=== PATIENT | male | born 1940 | race Caucasian/White ===

== ENCOUNTER 2020-01-17 11:28 | Emergency (ER) | payer OTHER ==
[~2020-01-17] VITALS: Ht 185.4 cm; Wt 79.8 kg
--- NOTE | 2020-01-17 11:30 | NUR ---
Patient to ER bed 04 to gown for evaluation. Side rails up.
--- NOTE | 2020-01-17 11:31 | NUR ---
Patient brought in by ambulance in the ED for syncopal episode x1 today. Denied any chest pain or shortness of breath. Denied any fevers, chills, nausea or vomiting. Patient is alert and oriented x4, respirations even and unlabored, speaking in full sentences, and ambulating with a steady gait. VSS, pain level 0/10. Informed of the approximate wait time. Instructed to notify ED staff for any changes in condition or worsening of symptoms while waiting to be seen by an ED provider. Patient verbalized understanding.
[2020-01-17 11:43] VITALS: BP_SYST 103
[2020-01-17] MEDS ORDERED: CLOP75TA32 PO (11:48)
[2020-01-17] MEDS ORDERED: NIAC500T2 PO (11:48)
[2020-01-17] MEDS ORDERED: BENA20TA9 PO (11:48)
[2020-01-17] MEDS ORDERED: METO-442 PO (11:48)
[2020-01-17] MEDS ORDERED: ASPI-1153 PO (11:48)
[2020-01-17] MEDS ORDERED: LIP10 PO (11:48)
[2020-01-17] MEDS ORDERED: ALLO100T PO (11:48)
[2020-01-17] MEDS ORDERED: UBID50TA3 PO (11:48)
[2020-01-17] MEDS ORDERED: GLUC-141 PO (11:48)
[2020-01-17] MEDS ORDERED: OMEG-95 PO (11:48)
[2020-01-17] MEDS ORDERED: AMLO5TAB4 PO (11:48)
--- NOTE | 2020-01-17 11:50 | NUR ---
ER Dr. Lomeli at bedside examining patient.
--- NOTE | 2020-01-17 11:58 | NUR ---
X-ray done at bedside as ordered by Dr. Lomeli. Patient tolerated the procedure well.
[2020-01-17] MEDS ORDERED: NACL 0.9% 1,000 ML IV ONE (12:00)
--- NOTE | 2020-01-17 12:20 | NUR ---
Medicated per MD orders. IVF infusing with no s/s of infiltration at this time. Will cont to monitor
[2020-01-17 13:06] LABS: ANION GAP 8 (5-15); CALCIUM 8.9 mg/dL (8.4-11.0); CHLORIDE 106 mmol/L (98-107); CREATININE 1.73 mg/dL (0.55-1.30); GLUCOSE 131 mg/dL (70-99); SODIUM SERUM 138 mmol/L (136-145); UREA NITROGEN, BLOOD 37 mg/dL (8-21)
[2020-01-17 13:14] LABS: ALANINE AMINOTRANSFERASE 23 U/L (12-78); ALBUMIN 3.7 g/dL (3.4-4.8); ASPARTATE AMINOTRANSFERASE 17 U/L (10-37); TOTAL BILIRUBIN 0.6 mg/dL (0.0-1.0)
[2020-01-17 14:12] LABS: BASOPHILS % (AUTO) 0.6 % (0.0-2.0); EOSINOPHILS # (AUTO) 0.1 K/uL (0.0-0.4); HEMATOCRIT 37.7 % (36-54); HEMOGLOBIN 12.5 g/dL (14.0-18.0); LYMPHOCYTES # (AUTO) 0.8 K/uL (1.0-5.5); LYMPHOCYTES % (AUTO) 11.7 % (20.5-51.5); MEAN CORPUSCULAR HEMOGLOBIN 37 pg (27-31); MEAN CORPUSCULAR HGB CONC 33 % (32-36); MONOCYTES # (AUTO) 0.4 K/uL (0.0-1.0); MONOCYTES % (AUTO) 6.6 % (1.7-9.3); NEUTROPHILS # (AUTO) 5.3 K/uL (1.8-7.7); NEUTROPHILS % (AUTO) 80.1 % (40.0-70.0); RED BLOOD CELL COUNT(AUTO) 3.35 MIL/uL (4.2-6.2); RED CELL DISTRIBUTION WIDTH 13.3 % (9.0-15.0); WHITE BLOOD COUNT (AUTO) 6.6 K/uL (4.8-10.8)
[2020-01-17 14:31] LABS: MEAN CORPUSCULAR VOLUME 113 fL (79.0-98.0)
[2020-01-17 14:32] LABS: PLATELET COUNT (AUTO) 95 K/uL (130-430)
[2020-01-17 14:34] VITALS: BP_SYST 103
--- NOTE | 2020-01-17 14:35 | NUR ---
ER discussed with the patient the results and treatment provided. Patient given written and verbal discharge instructions and verbalized understanding. Opportunity for questions provided and answered. Patient in stable condition, last set of vital signs within normal limits, pain scale 0/10, speaking in full sentences and ambulated with a steady gait upon discharge. ID arm band removed. No Rx given. Patient educated on pain management and to follow up with PMD. Medication side effect fact sheet provided.
== END 2020-01-17 14:34 | disposition home or self-care (01) ==
LOC: SED 11:28
DX: T67.5XXA Heat exhaustion, unspecified, initial encounter (principal); R42 Dizziness and giddiness; I10 Essential (primary) hypertension; Z79.899 Other long term (current) drug therapy; Z79.84 Long term (current) use of oral hypoglycemic drugs; X30.XXXA Exposure to excessive natural heat, initial encounter; Y93.89 Activity, other specified; Y92.89 Other specified places as the place of occurrence of the external cause; Y99.8 Other external cause status
CPT/HCPCS: 36415; 71045; 80053; 82550; 83880; 84484; 85025; 93005; 96360; 99285; J7030